=== PATIENT | female | born 1995 | race Caucasian/White ===

== ENCOUNTER 2019-11-14 01:18 | Inpatient (IN) | payer BC ==
[~2019-11-14 01:18] MED LIST: Bupivacaine 0.25% 10 ML SDV ONE; Phenylephrine 1% 10 MG/ML SDV ONE; ePHEDrine/Normal Saline 25 MG/5 ML Syringe ONE
[2019-11-14] MEDS ORDERED: Sodium Chloride 0.9% 10 ML Syringe FLUSH PRN (02:10)
[2019-11-14] MEDS ORDERED: Nalbuphine 10 MG/ML Syringe IVPUSH PRN (02:10)
[2019-11-14] MEDS ORDERED: Oxytocin/Lactated Ringers 10 UNIT/1,000 ML BAG IV SCH ×2 (02:15→05:15)
[2019-11-14] MEDS: Lactated Ringers 1,000 ML IV SCH ×3 (02:45→04:25)
[2019-11-14] MEDS ORDERED: diphenhydrAMINE 50 MG/ML SDV IVPUSH PRN (03:23)
[2019-11-14] MEDS ORDERED: ePHEDrine 50 MG/ML SDV IVPUSH PRN (03:23)
[2019-11-14] MEDS ORDERED: fentaNYL 100 MCG/2 ML SDV EPIDUR PRN (03:23)
[2019-11-14] MEDS ORDERED: fentaNYL/Bupivacaine/NS 2 MCG-0.125% 250 ML EPIDUR PRN (03:23)
--- NOTE | 2019-11-14 03:57 | PCM.LDHP ---
L&D History of Present Illness - General Date of Service: 11/14/19 Admit Problem/Dx: Patient Status Order with Admit Dx/Problem 11/14/19 02:10 Patient Status [ADT] Routine Admission Diagnosis/Problem Admission Diagnosis/Problem 11/14/19 03:47 Lavonne is a 24-year-old 1 para 0 white female admitted with spontaneous rupture membranes with resultant clear amniotic fluid, active labor and advanced cervical dilation of 5 cm at 39-0/7 weeks gestational age.. Her FELIX is 11/21/2019 as determined by LMP and supported by at least 3 ultrasounds. Source of Information: Patient History Limitations: Reports: No Limitations - History of Present Illness Introduction:: Lavonne is a 24-year-old 1 para 0 white female admitted with spontaneous rupture membranes with resultant clear amniotic fluid, active labor and advanced cervical dilation of 5 cm at 39-0/7 weeks gestational age.. Her FELIX is 11/21/2019 as determined by LMP and supported by at least 3 ultrasounds. Reports good activity. heart tones are reassuring. Amniotic fluid is then confirmed to be clear. Patient is desiring epidural. [employer] History: Patient is 1 para 0. Certain last menstrual period started 02/14/2019. Menarche age 12. Cycles every 28 days. Patient using no control to time conception. She had ultrasounds done on 04/25/2019, 07/05/2019 and 10/19/2019 all consistent with her LMP dating. course was relatively unremarkable. She is a centering patient. Her group B strep screen is negative. She did have a cold sore during the course of her and took valacyclovir for this. She declined genetic testing during the . She plans to breast-feed. Patient is rubella nonimmune and rhythm MMR is recommended after delivery. Weight gain has been from 156 pounds up to 174.4 pounds. Fundal height growth has been appropriate. She received her flu immunization on 08/23/2019. On 11/20/2018 she received her T dap. She had her HPV triple vaccination with last dose April 05, 2007. Hepatitis B triple dosing with last dose on 1994. Meningococcal minimization 2 doses with last dose on 03/15/2012. laboratory testing shows blood to be A+ with negative MRI screening. First hemoglobin is 13.0 g/dL and platelets are 302,000. She is rubella nonimmune. RPR is nonreactive. Hepatitis B surface antigen and HIV assays were both negative. Chlamydia and gonorrhea assays both negative. Second trimester labs show a hemoglobin of 10.7 g/dL and platelets at 252,000. Her 1 hour GTT was normal at 112. Follow-up platelet count on 11/01/2019 was 217,000. Her hemoglobin was 12.9 g/dL. Patient had been started on ferrous sulfate 325 mg by mouth daily. Her group B strep screen was negative. Allergies: None Medications: 1. Valacyclovir HCl 1 g orally take 2 tabs at onset and 2 tabs in 12 hours. Patient uses for cold sore and 1. 2. vitamins daily 3. Ferrous sulfate 325 mg by mouth daily. Past medical history: Unremarkable Past surgical history: 1. Tonsillectomy 2. [place] tooth extraction. Family history: Mother is alive and well. Father has hypertension and is on medications. Maternal grandmother is alive and well as is the maternal grandfather. Patient has 4 siblings that are all alive and well. Paternal grandmother with hypertension on medications. Paternal grandfather history of strokes, diabetes and cancer type of which is unknown. Review of systems: In general patient has no complaints other than leakage of amniotic fluid and contractions. Baby has been active.. Skin: Negative Lungs: No infectious symptoms or shortness of breath Cardiovascular: No chest pain or exercise intolerance Breasts: Changes associated with including increased size and tenderness.. GI: Negative : Body habitus changes associated with Musculoskeletal: Negative Neurological: Negative In general the patient is well-developed, well-nourished, pleasant female of stated age in no acute distress. On last evaluation in clinic blood pressures 119/68. Weight was 174.4 pounds. heart rate was 145. Pregravid weight was 156 pounds. It is 5 feet 4 inches and pregravid BMI was 26.8. Skin is warm dry without lesions. HEENT, neck and back within normal limits. Lungs are clear with good breath sounds in all lung bowman. Cardiovascular exam shows regular and rhythm without murmurs. Breast exam deferred having been done at first visit and normal and is not repeated at this time. Abdomen is gravid with last fundal height on 11/07/2019 clinic at 37.5 inches. Baby in vertex presentation. Genital per digital exam done by nursing staff initially shows cervix to be 5 cm , 80% effaced, +1 station, anterior, very soft, cephalic presentation and with positive clear amniotic fluid. Extremities and neurological exam are grossly within normal limits. - Related Data Allergies/Adverse Reactions: Allergies Allergy/AdvReac Type Severity Reaction Status Date / Time No Known Allergies Allergy Verified 11/14/19 02:37 H&P Review of Systems - Review of Systems: Review Of Systems: See Below L&D Exam - Exam Exam: See Below - Vital Signs Weight: 69.853 kg - Patient Data Lab Results Last 24 hrs: Laboratory Results - last 24 hr 11/14/19 Range/Units 02:27 WBC 15.78 H (3.98-10.04) K/mm3 RBC 4.10 (3.98-5.22) M/mm3 Hgb 12.6 (11.2-15.7) gm/dl Hct 36.4 (34.1-44.9) % MCV 88.8 (79.4-94.8) fl MCH 30.7 (25.6-32.2) pg MCHC 34.6 (32.2-35.5) g/dl RDW Std Deviation 40.0 (36.4-46.3) fL Plt Count 294 D (182-369) K/mm3 MPV 9.9 (9.4-12.3) fl Neut % (Auto) 74.2 H (34.0-71.1) % Lymph % (Auto) 18.6 L (19.3-51.7) % Nicholas % (Auto) 6.3 (4.7-12.5) % Eos % (Auto) 0.2 L (0.7-5.8) Baso % (Auto) 0.1 (0.1-1.2) % Neut # (Auto) 11.71 H (1.56-6.13) K/mm3 Lymph # (Auto) 2.93 (1.18-3.74) K/mm3 Nicholas # (Auto) 1.00 H (0.24-0.36) K/mm3 Eos # (Auto) 0.03 L (0.04-0.36) K/mm3 Baso # (Auto) 0.02 (0.01-0.08) K/mm3 Result Diagrams: 11/14/19 02:27 Problem List Initiated/Reviewed/Updated: Yes Orders Last 24hrs: Active Orders 24 hr Category Date Time Status Patient Status [ADT] Routine ADT 11/14/19 02:10 Active Activity as Tolerated [RC] PFP Care 11/14/19 02:10 Active Communication Order [RC] ASDIRECTED Care 11/14/19 02:10 Active Communication Order [RC] ASDIRECTED Care 11/14/19 03:23 Active Cooling Warming Measures [RC] ASDIRECTED Care 11/14/19 03:23 Active Heart Tones [RC] ASDIRECTED Care 11/14/19 02:14 Active Non Stress Test [RC] PER UNIT ROUTINE Care 11/14/19 02:10 Active Notify Provider [RC] ASDIRECTED Care 11/14/19 03:23 Active Notify Provider [RC] PFP Care 11/14/19 02:10 Active Notify Provider [RC] PRN Care 11/14/19 02:10 Active Oxygen Therapy [RC] ASDIRECTED Care 11/14/19 03:23 Active Peripheral IV Care [RC] . DIRECTED Care 11/14/19 02:14 Active Pulse Oximetry [RC] ASDIRECTED Care 11/14/19 03:23 Active Vital Signs [RC] PER UNIT ROUTINE Care 11/14/19 02:10 Active Vital Signs [RC] Q1H Care 11/14/19 03:23 Active Regular Diet [DIET] Diet 11/14/19 Breakfast Active RAPID PLASMA REAGIN,RPR [CHEM] Routine Lab 11/14/19 02:27 Received Bupivicaine/fentaNYL/NS [fentaNYL/Bupivacaine/NS 2 MCG- Med 11/14/19 03:23 Active 0.125% 250 ML] 0 ml EPIDUR CONTINUOUS PRN Lactated Ringers [Ringers, Lactated] 1,000 ml Med 11/14/19 02:15 Active IV ASDIRECTED Nalbuphine [Nubain] Med 11/14/19 02:10 Active 10 mg IVPUSH Q2H PRN Oxytocin/Lactated Ringers [Pitocin in LR 10 Units/1,000 Med 11/14/19 02:15 Active ML] 10 unit in 1,000 ml IV CONTINUOUS Sodium Chloride 0.9% [Saline Flush] Med 11/14/19 02:10 Active 10 ml FLUSH ASDIRECTED PRN diphenhydrAMINE [Benadryl] Med 11/14/19 03:23 Active 25 mg IVPUSH Q6H PRN ePHEDrine [ePHEDrine sulfate] Med 11/14/19 03:23 Active 5 mg IVPUSH ASDIRECTED PRN fentaNYL [Sublimaze] Med 11/14/19 03:23 Active 100 mcg EPIDUR Q3H PRN Electronic Heart Tones Ext w TOCO [WOMSER] Oth 11/14/19 02:10 Ordered Routine Electronic Heart Tones Internal [WOMSER] Per Unit Oth 11/14/19 02:10 Ordered Routine Peripheral IV Insertion Adult [OM.PC] Routine Oth 11/14/19 02:10 Ordered Resuscitation Status Routine Resus Stat 11/14/19 02:10 Ordered Medication Orders Diphenhydramine HCl (Benadryl) 25 mg IVPUSH Q6H PRN PRN Reason: Itching Ephedrine Sulfate (Ephedrine Sulfate) 5 mg IVPUSH ASDIRECTED PRN PRN Reason: HYPOTENTSION Fentanyl (Sublimaze) 100 mcg EPIDUR Q3H PRN PRN Reason: Pain Fentanyl/Bupivacaine HCl (Fentanyl/Bupivacaine/Ns 2 Mcg-0.125% 250 Ml) 0 ml EPIDUR CONTINUOUS PRN PRN Reason: Pain Lactated Ringer's (Ringers, Lactated) 1,000 mls @ 100 mls/hr IV ASDIRECTED MILANA Oxytocin/Lactated Ringer's (Pitocin In Lr 10 Units/1,000 Ml) 10 unit in 1,000 mls @ 500 mls/hr IV CONTINUOUS MILANA Nalbuphine HCl (Nubain) 10 mg IVPUSH Q2H PRN PRN Reason: Pain Sodium Chloride (Saline Flush) 10 ml FLUSH ASDIRECTED PRN PRN Reason: Keep Vein Open Assessment/Plan Comment:: 1. 39-0/7 week intrauterine , active labor, spontaneous rupture membranes with advanced cervical dilation to 5 cm upon admission 2. Group B strep screen is negative. 3. Rubella titer is nonimmuneMMR recommended after delivery and prior to discharge from hospital. 4. Patient desiring epidural in labor and delivery 5. Patient is up-to-date regarding her flu immunization, T dap 6. Patient plans to breast-feed 7. Patient has a history of cold sore 1 during pregnancytreated with valacyclovir. No sinus symptoms of herpes at this time. Plan: 1. Anticipate normal spontaneous vaginal delivery 2. Epidural when necessary for pain control in labor 3. MMR prior to discharge from the hospital 4. Routine labor care 5. CBC and RPR upon admission 6. Support breast-feeding decision/activity
--- NOTE | 2019-11-14 04:05 | PCM.PREANE ---
Preanesthetic Assessment - Procedure Proposed Procedure: Epidural - Anesthesia/Transfusion/Family Hx Anesthesia History: No Prior Anesthesia Family History of Anesthesia Reaction: No Transfusion History: No Prior Transfusion(s) - Review of Systems General: Fatigue Pulmonary: No Symptoms Cardiovascular: No Symptoms Gastrointestinal: Abdominal Pain (labor) Neurological: No Symptoms Other: Reports: None - Physical Assessment Height: 1.63 m Weight: 69.853 kg ASA Class: 2 Mental Status: Alert & Oriented x3 Airway Class: Mallampati = 1 Dentition: Reports: Normal Dentition Thyro-Mental Finger Breadths: 3 Mouth Opening Finger Breadths: 3 ROM/Head Extension: Full Lungs: Clear to Auscultation, Normal Respiratory Effort Cardiovascular: Regular Rate, Regular Rhythm - Lab Values: Laboratory Last Values WBC 15.78 K/mm3 (3.98-10.04) H 11/14/19 02:27 RBC 4.10 M/mm3 (3.98-5.22) 11/14/19 02:27 Hgb 12.6 gm/dl (11.2-15.7) 11/14/19 02:27 Hct 36.4 % (34.1-44.9) 11/14/19 02:27 MCV 88.8 fl (79.4-94.8) 11/14/19 02:27 MCH 30.7 pg (25.6-32.2) 11/14/19 02:27 MCHC 34.6 g/dl (32.2-35.5) 11/14/19 02:27 RDW Std Deviation 40.0 fL (36.4-46.3) 11/14/19 02:27 Plt Count 294 K/mm3 (182-369) D 11/14/19 02:27 MPV 9.9 fl (9.4-12.3) 11/14/19 02:27 Neut % (Auto) 74.2 % (34.0-71.1) H 11/14/19 02:27 Lymph % (Auto) 18.6 % (19.3-51.7) L 11/14/19 02:27 Dawes % (Auto) 6.3 % (4.7-12.5) 11/14/19 02:27 Eos % (Auto) 0.2 (0.7-5.8) L 11/14/19 02:27 Baso % (Auto) 0.1 % (0.1-1.2) 11/14/19 02:27 Neut # (Auto) 11.71 K/mm3 (1.56-6.13) H 11/14/19 02:27 Lymph # (Auto) 2.93 K/mm3 (1.18-3.74) 11/14/19 02:27 Dawes # (Auto) 1.00 K/mm3 (0.24-0.36) H 11/14/19 02:27 Eos # (Auto) 0.03 K/mm3 (0.04-0.36) L 11/14/19 02:27 Baso # (Auto) 0.02 K/mm3 (0.01-0.08) 11/14/19 02:27 - Allergies Allergies/Adverse Reactions: Allergies Allergy/AdvReac Type Severity Reaction Status Date / Time No Known Allergies Allergy Verified 11/14/19 02:37 - Anesthesia Plan Pre-Op Medication Ordered: None - Acknowledgements Anesthesia Type Planned: Epidural Pt an Appropriate Candidate for the Planned Anesthesia: Yes Alternatives and Risks of Anesthesia Discussed w Pt/Guardian: Yes Pt/Guardian Understands and Agrees with Anesthesia Plan: Yes PreAnesthesia Questionnaire Gastrointestinal History: Reports: GERD - CURRENT (IN HOUSE) MEDS Current Meds: Current Medications Diphenhydramine HCl (Benadryl) 25 mg IVPUSH Q6H PRN PRN Reason: Itching Ephedrine Sulfate (Ephedrine Sulfate) 5 mg IVPUSH ASDIRECTED PRN PRN Reason: HYPOTENTSION Fentanyl (Sublimaze) 100 mcg EPIDUR Q3H PRN PRN Reason: Pain Fentanyl/Bupivacaine HCl (Fentanyl/Bupivacaine/Ns 2 Mcg-0.125% 250 Ml) 0 ml EPIDUR CONTINUOUS PRN PRN Reason: Pain Lactated Ringer's (Ringers, Lactated) 1,000 mls @ 100 mls/hr IV ASDIRECTED MILANA Oxytocin/Lactated Ringer's (Pitocin In Lr 10 Units/1,000 Ml) 10 unit in 1,000 mls @ 500 mls/hr IV CONTINUOUS MILANA Nalbuphine HCl (Nubain) 10 mg IVPUSH Q2H PRN PRN Reason: Pain Sodium Chloride (Saline Flush) 10 ml FLUSH ASDIRECTED PRN PRN Reason: Keep Vein Open
--- NOTE | 2019-11-14 07:30 | PCM.SN ---
- Free Text/Narrative Note: Delivery note: Lavonne is a 24-year-old 1 para 0 white female admitted on a.m. of 2018 with spontaneous rupture membranes with resultant clear amniotic fluid, active labor and advanced cervical dilation of 5 cm at 39-0/7 weeks gestational age.. Her FELIX is 11/21/2019 as determined by LMP and supported by at least 3 ultrasounds. She rapidly went on to complete cervical dilation.Lavonne had an epidural placed for labor and analgesia. This worked very well for her. She rapidly went on to complete cervical dilation at 0639 hrs. on 11/14/2019. She delivered a viable, small, female with Apgars of 9 and 9, a length of 20.5 inches and a weight of 3270 g (7 lbs. 3 oz.). She delivered in an occiput anterior position. She had a small, superficial vaginal laceration which was repaired with a short running suture of 3-0 Monocryl. After delivery IV Pitocin was increased to 500 mL an hour to facilitate increase in uterine tone and decreased likelihood of bleeding. The baby was placed on mom's abdomen and her nose and mouth were bulb suctioned. The umbilical cord was allowed to pulsate for approximately 2 minutes and then was clamped 2 and cut by the baby's father. The umbilical cord had 3 vessels. Cord blood was obtained. The placenta delivered in a Haddad presentation, appeared to have a marginal insertion of the umbilical cord, appeared intact and complete and was discarded per patient desire. Estimated blood loss was 100 mL. Patient plans to breast-feed. Condition: Good.
[2019-11-14] MEDS ORDERED: Witch Hazel Medicated Pads 40/Jar TOP PRN (08:28)
[2019-11-14] MEDS ORDERED: Acetaminophen 325 MG Tab PO PRN (08:28)
[2019-11-14] MEDS ORDERED: Ibuprofen 600 MG Tab PO PRN (08:28)
[2019-11-14] MEDS ORDERED: Docusate Sodium 100 MG Cap PO PRN (08:28)
[2019-11-14] MEDS ORDERED: Benzocaine/Menthol 20%-0.5% Spray 56 GM Canister TOP PRN (08:28)
--- NOTE | 2019-11-14 14:52 | PCM48HPAN ---
Post Anesthesia Note - EVALUATION WITHIN 48HRS OF ANESTHETIC Vital Signs in Normal Range: Yes Patient Participated in Evaluation: Yes Respiratory Function Stable: Yes Airway Patent: Yes Cardiovascular Function Stable: Yes Hydration Status Stable: Yes Pain Control Satisfactory: Yes Nausea and Vomiting Control Satisfactory: Yes Mental Status Recovered: Yes Vital Signs: Last Vital Signs Temp 36.6 C 11/14/19 08:45 Pulse 104 H 11/14/19 08:45 Resp 14 11/14/19 08:45 BP 118/68 11/14/19 08:45 Pulse Ox 100 11/14/19 08:45
[2019-11-14] MEDS: Prenatal Multivitamin with Calcium/Folic Acid/Iron Tab PO SCH (18:12)
[2019-11-14] MEDS ORDERED: Measles, Mumps & Rubella Vaccine 0.5 ML SDV SUBCUT ONE (19:20)
[2019-11-15] MEDS: Prenatal Multivitamin with Calcium/Folic Acid/Iron Tab PO SCH (10:48)
--- NOTE | 2019-11-15 13:31 | PCM.SN ---
- Free Text/Narrative Note: note: Patient is doing well in the period. Minimal lochia, voiding well, ambulated without problems. Nursing without concerns. Patient is afebrile, vital signs are stable Abdomen is flat, soft, uterus is below the umbilicus and is firm and nontender. Legs are nontender. Assessment: recovery going well. Plan: Routine care. Patient be discharged home within the next 24- 48 hours.
--- NOTE | 2019-11-15 16:46 | PCM.DCSUM1 ---
Discharge Summary - Hospital Course Free Text/Narrative:: Lavonne is a 24-year-old 1 para 0 white female admitted on a.m. of 2018 with spontaneous rupture membranes with resultant clear amniotic fluid, active labor and advanced cervical dilation of 5 cm at 39-0/7 weeks gestational age.. Her FELIX is 11/21/2019 as determined by LMP and supported by at least 3 ultrasounds. She rapidly went on to complete cervical dilation.Lavonne had an epidural placed for labor and analgesia. This worked very well for her. She rapidly went on to complete cervical dilation at 0639 hrs. on 11/14/2019. She delivered a viable, small, female infant with Apgars of 9 and 9, a length of 20.5 inches and a weight of 3270 g (7 lbs. 3 oz.). She delivered in an occiput anterior position. She had a small, superficial vaginal laceration which was repaired with a short running suture of 3-0 Monocryl. After delivery IV Pitocin was increased to 500 mL an hour to facilitate increase in uterine tone and decreased likelihood of bleeding. The baby was placed on mom's abdomen and her nose and mouth were bulb suctioned. The umbilical cord was allowed to pulsate for approximately 2 minutes and then was clamped 2 and cut by the baby's father. The umbilical cord had 3 vessels. Cord blood was obtained. The placenta delivered in a Haddad presentation, appeared to have a marginal insertion of the umbilical cord, appeared intact and complete and was discarded per patient desire. Estimated blood loss was 100 mL. Patient plans to breast-feed. patient is done well. She is voiding well, has minimal lochia and is ambulating well. She desires discharge home. Condition: Good. Diagnosis: Stroke: No - Discharge Data Discharge Date: 11/15/19 Discharge Disposition: Home, Self-Care 01 Condition: Good - Referral to Home Health Primary Care Physician: Eulogio Henry MD - Patient Instructions Diet: Regular Diet as Tolerated (Nursing diet with increase calories and calcium is recommended) Activity: As Tolerated (No intercourse or tampons until bleeding resolves) Driving: May Drive Today Showering/Bathing: May Shower (May take a bath) Notify Provider of: Fever, Increased Pain, Swelling and Redness, Nausea and/or Vomiting - Discharge Plan Home Medications: Home Meds Mv-Mn/Iron/FA/Herbal/Digestive [ One Tablet] 1 tab PO DAILY 11/14/19 [ History] Acetaminophen [Tylenol] 650 mg PO Q4H PRN tablet 11/15/19 [Rx] Ibuprofen [Motrin] 600 mg PO Q4H PRN tablet 11/15/19 [Rx] Referrals: Eulogio Henry MD [Primary Care Provider] - (Return to [facility] weeks.) - Discharge Summary/Plan Comment DC Time >30 min.: No Discharge Summary/Plan Comment: Discharge instructions: 1. Discharge home 2. Diet, activity and follow-up discussed with patient. Recommend nursing diet with increased calories and calcium. 3. Precautions given concern increased pain, bleeding, temperature, signs/ symptoms of DVT/PE. 4. Medications per home medication was printed, discussed with and given to the patient. 5. Return to clinic-Dr. Henry[facility] in 2 weeks. Diagnosis: Term -delivered Condition: Good - Patient Data Vitals - Most Recent: Last Vital Signs Temp 36.7 C 11/15/19 15:20 Pulse 101 H 11/15/19 15:20 Resp 16 11/15/19 08:58 BP 122/70 11/15/19 15:20 Pulse Ox 100 11/15/19 15:20 Weight - Most Recent: 69.853 kg I&O - Last 24 hours: Intake & Output 11/15/19 11/15/19 11/15/19 06:59 14:59 22:59 Intake Total 120 240 Balance 120 240 Lab Results - Last 24 hrs: Laboratory Results - last 24 hr 11/14/19 Range/Units 02:27 RPR Non-reactive (NONREACTIVE) Med Orders - Current: Current Medications Acetaminophen (Tylenol) 650 mg PO Q4H PRN PRN Reason: mild pain or fever Benzocaine/Menthol (Dermoplast Pain Relief [place]) 0 gm TOP ASDIRECTED PRN PRN Reason: Perineal Comfort Measure Last Admin: 11/14/19 17:48 Dose: 1 spray Docusate Sodium (Colace) 100 mg PO BID PRN PRN Reason: Constipation Ibuprofen (Motrin) 600 mg PO Q4H PRN PRN Reason: Mild pain or fever Last Admin: 11/14/19 17:47 Dose: 600 mg Prenat Multivit/Mcdowell/Iron/Folic Ac ( Plus Iron) 1 each PO DAILY MILANA Last Admin: 11/15/19 10:48 Dose: Not Given Tommy Armando (Tucks) 1 pad TOP ASDIRECTED PRN PRN Reason: Pain Last Admin: 11/14/19 17:48 Dose: 1 applic Discontinued Medications Bupivacaine HCl (Sensorcaine-Mpf 0.25%) 10 ml .ROUTE .STK-MED ONE Stop: 11/14/19 00:01 Diphenhydramine HCl (Benadryl) 25 mg IVPUSH Q6H PRN PRN Reason: Itching Ephedrine Sulfate (Ephedrine Sulfate) 5 mg IVPUSH ASDIRECTED PRN PRN Reason: HYPOTENTSION Ephedrine Sulfate (Ephedrine In Ns) 25 mg .ROUTE .STK-MED ONE Stop: 11/14/19 00:01 Fentanyl (Sublimaze) 100 mcg EPIDUR Q3H PRN PRN Reason: Pain Last Admin: 11/14/19 04:15 Dose: 100 mcg Fentanyl/Bupivacaine HCl (Fentanyl/Bupivacaine/Ns 2 Mcg-0.125% 250 Ml) 0 ml EPIDUR CONTINUOUS PRN PRN Reason: Pain Last Admin: 11/14/19 04:14 Dose: 250 ml Lactated Ringer's (Ringers, Lactated) 1,000 mls @ 100 mls/hr IV ASDIRECTED MILANA Last Admin: 11/14/19 04:25 Dose: 999 mls/hr Oxytocin/Lactated Ringer's (Pitocin In Lr 10 Units/1,000 Ml) 10 unit in 1,000 mls @ 500 mls/hr IV CONTINUOUS MILANA Oxytocin/Lactated Ringer's (Pitocin In Lr 10 Units/1,000 Ml) 10 unit in 1,000 mls @ 12 mls/hr IV TITRATE MILANA; Protocol Last Titration: 11/14/19 06:40 Dose: 500 mls/hr Measles/Mumps/Rubella Vaccine Live (M-M-R Ii Vaccine) 0.5 ml SUBCUT .ONCE ONE Stop: 11/14/19 19:21 Last Admin: 11/15/19 11:27 Dose: 0.5 ml Nalbuphine HCl (Nubain) 10 mg IVPUSH Q2H PRN PRN Reason: Pain Phenylephrine HCl (Leonard-Synephrine) 10 mg .ROUTE .STK-MED ONE Stop: 11/14/19 00:01 Sodium Chloride (Saline Flush) 10 ml FLUSH ASDIRECTED PRN PRN Reason: Keep Vein Open
== END 2019-11-15 19:13 | disposition home or self-care (01) | DRG 560 ==
LOC: JD.OBCHECK 01:18 → JD.OB 01:25 → JD.OBCHECK 05:30 → JD.OB 05:33 → OBSVTOIN 06:39 → JD.OB 06:40
PROVIDERS: ADMIT Obstetrics & Gynecology; ATTEND Obstetrics & Gynecology
PROC: 10E0XZZ Delivery of Products of Conception, External Approach (ICD-10-PCS; principal; 2019-11-14)
PROC: 0HQ9XZZ Repair Perineum Skin, External Approach (ICD-10-PCS; 2019-11-14)
PROC: 3E0R3BZ Introduction of Anesthetic Agent into Spinal Canal, Percutaneous Approach (ICD-10-PCS; 2019-11-14)
DX: O70.0 First degree perineal laceration during delivery (principal); Z3A.39 39 weeks gestation of pregnancy; Z37.0 Single live birth
CPT/HCPCS: 36415; 59025; 59409; 85025; 86592; 90471; 90707; A9270-GY; G0010; J2370; J2590; J3010; J3490; J7050; J7120

== ENCOUNTER 2021-05-12 18:06 | Inpatient (IN) | payer BC ==
[~2021-05-12 18:06] MED LIST changes: -Phenylephrine 1% 10 MG/ML SDV ONE; -ePHEDrine/Normal Saline 25 MG/5 ML Syringe ONE
[2021-05-12] MEDS ORDERED: Ondansetron 4 MG/2 ML SDV IVPUSH PRN (18:36)
[2021-05-12] MEDS ORDERED: Lidocaine 1% 50 ML MDV INJECT ONE (18:36)
[2021-05-12] MEDS ORDERED: Sodium Chloride 0.9% 10 ML Syringe FLUSH PRN (18:36)
[2021-05-12] MEDS ORDERED: Nalbuphine 10 MG/1 ML Vial IVPUSH PRN (18:36)
[2021-05-12] MEDS ORDERED: Oxytocin/Lactated Ringers 10 UNIT/1,000 ML BAG IV SCH ×2 (18:45→21:59)
[2021-05-12] MEDS: Lactated Ringers 1,000 ML IV SCH ×3 (18:53→19:53)
[2021-05-12] MEDS ORDERED: Bupivacaine/fentaNYL/NS 100 ML Bag EPIDUR SCH (19:15)
[2021-05-12] MEDS ORDERED: fentaNYL 100 MCG/2 ML SDV EPIDUR PRN (19:15)
[2021-05-12] MEDS ORDERED: ePHEDrine 50 MG/ML SDV IVPUSH PRN (19:15)
--- NOTE | 2021-05-12 19:19 | PCM.PREANE ---
Preanesthetic Assessment - Procedure Proposed Procedure: Epidural - Anesthesia/Transfusion/Family Hx Anesthesia History: Prior Anesthesia Without Reaction Family History of Anesthesia Reaction: No Transfusion History: No Prior Transfusion(s) Intubation History: Unknown - Review of Systems General: No Symptoms Pulmonary: No Symptoms Cardiovascular: No Symptoms Gastrointestinal: No Symptoms (GERD) Neurological: No Symptoms Other: Reports: None - Physical Assessment NPO Status Date: 05/12/21 NPO Status Time: 12:00 Vital Signs: Last Vital Signs Temp 37.7 C 05/12/21 18:21 Pulse 106 H 05/12/21 18:21 Resp 16 05/12/21 18:21 BP 133/72 05/12/21 18:21 Pulse Ox 100 05/12/21 18:21 Height: 1.63 m Weight: 81.76 kg ASA Class: 2 Mental Status: Alert & Oriented x3 Airway Class: Mallampati = 2 Dentition: Reports: Normal Dentition, Caries Thyro-Mental Finger Breadths: 3 Mouth Opening Finger Breadths: 3 ROM/Head Extension: Full Lungs: Clear to Auscultation, Normal Respiratory Effort Cardiovascular: Regular Rate, Regular Rhythm, No Murmurs - Lab Values: Laboratory Last Values WBC 10.82 K/mm3 (3.98-10.04) H 05/12/21 18:55 RBC 3.81 M/mm3 (3.98-5.22) L 05/12/21 18:55 Hgb 11.9 gm/dl (11.2-15.7) 05/12/21 18:55 Hct 34.3 % (34.1-44.9) 05/12/21 18:55 MCV 90.0 fl (79.4-94.8) 05/12/21 18:55 MCH 31.2 pg (25.6-32.2) 05/12/21 18:55 MCHC 34.7 g/dl (32.2-35.5) 05/12/21 18:55 RDW Std Deviation 41.9 fL (36.4-46.3) 05/12/21 18:55 Plt Count 195 K/mm3 (182-369) 05/12/21 18:55 MPV 9.9 fl (9.4-12.3) 05/12/21 18:55 Above labs reviewed and noted and within acceptable ranges to proceed with epidural/spinal if desired. - Allergies Allergies/Adverse Reactions: Allergies Allergy/AdvReac Type Severity Reaction Status Date / Time No Known Allergies Allergy Verified 11/14/19 02:37 - Anesthesia Plan Pre-Op Medication Ordered: None - Acknowledgements Anesthesia Type Planned: Spinal, Epidural Pt an Appropriate Candidate for the Planned Anesthesia: Yes Alternatives and Risks of Anesthesia Discussed w Pt/Guardian: Yes Pt/Guardian Understands and Agrees with Anesthesia Plan: Yes PreAnesthesia Questionnaire Gastrointestinal History: Reports: G[employer]D [employer]CH[employer]ICIAN History: Reports: - Past Surgical History HEENT Surgical History: Reports: Tonsillectomy - HOME MEDS Home Medications: Home Meds Mv-Mn/Iron/FA/Herbal/Digestive [ One Tablet] 1 tab PO DAILY 11/14/19 [History] Acetaminophen [Tylenol] 650 mg PO Q4H PRN tablet 11/15/19 [Rx] Ibuprofen [Motrin] 600 mg PO Q4H PRN tablet 11/15/19 [Rx] - CURRENT (IN HOUSE) MEDS Current Meds: Current Medications Ephedrine Sulfate (Ephedrine 50 Mg/Ml Sdv) 5 mg IVPUSH ASDIRECTED PRN PRN Reason: Hypotension Fentanyl (Fentanyl 100 Mcg/2 Ml Sdv) 100 mcg EPIDUR Q3H PRN PRN Reason: Pain Fentanyl/Bupivacaine HCl (Bupivacaine/Fentanyl/Ns 100 Ml Bag) 100 ml EPIDUR ASDIRECTED [facility] Oxytocin/Lactated Ringer's (Pitocin In Lr 10 Units/1,000 Ml) 10 unit in 1,000 mls @ 500 mls/hr IV .CONTINUOUS [facility] Lactated Ringer's (Ringers, Lactated) 1,000 mls @ 100 mls/hr IV ASDIRECTED [facility] Last Admin: 05/12/21 19:03 Dose: 100 mls/hr Documented by: Miscellaneous Medication (Phenylephrine Hcl In 0.9% Nacl 1 Mg/10 Ml Syringe) 0.1 mg IVPUSH Q10M PRN PRN Reason: Hypotension Nalbuphine HCl (Nalbuphine 10 Mg/1 Ml Vial) 10 mg IVPUSH Q2H PRN PRN Reason: Pain Ondansetron HCl (Ondansetron 4 Mg/2 Ml Sdv) 4 mg IVPUSH Q4H PRN PRN Reason: Nausea/Vomiting Sodium Chloride (Sodium Chloride 0.9% 10 Ml Syringe) 10 ml FLUSH ASDIRECTED PRN PRN Reason: Keep Vein Open Discontinued Medications Lidocaine HCl (Lidocaine 1% 50 Ml Mdv) 50 ml INJECT ONETIME ONE Stop: 05/12/21 18:37
--- NOTE | 2021-05-12 19:35 | PCM.LDHP ---
L&D History of Present Illness - General Date of Service: 05/12/21 Admit Problem/Dx: Patient Status Order with Admit Dx/Problem 05/12/21 19:25 Admission Status [Patient Status] [ADT] Routine Admission Diagnosis/Problem Admission Diagnosis/Problem Labor established Source of Information: Patient History Limitations: Reports: No Limitations - History of Present Illness Introduction:: Lavonne Yarbrough is a 26-year-old -0-0-1 female at 39 weeks 5 days (FELIX 05/14/2021) by LMP consistent with a 10-week ultrasound who presents in active labor. She reports that she has been having cramping off and on throughout the day today but really started having contractions at around 4 PM. Her contractions at that time were about 6 minutes apart and then became closer and closer together. By the time that she arrived to labor and delivery for evaluation her contractions were about 2 to 3 minutes apart and were lasting for around 45 seconds to a minute at a time. She reports that they were getting much stronger as well. She denies any leaking of fluid but did have some scant bleeding with mucus discharge with the contractions. She reports good movement. Timing/Duration: Reports: constant/continuous (Every 2 to 6 minutes starting at around 4 PM and getting closer and closer together) Location, : Reports: Lower back, Pelvic Quality: Reports: Pressure, Throbbing Severity: Severe Pain Score: 8 Improves with: Reports: None Worsens with: Reports: None Associated Symptoms: Reports: vaginal bleeding (Small amount with mucus discharge). Denies: vaginal discharge, vaginal fluid Present Illness Comments:: Lavonne Yarbrough is a 26-year-old -0-0-1 female at 39 weeks 5 days (FELIX 021) by LMP consistent with a 10-week ultrasound who presents with spontaneous labor. She has had routine care with Dr. Henry starting at 10 weeks gestational age. She has had an uncomplicated . She received Tdap on 03/04/2021. She received the flu shot on 08/13/2020. She had a normal anatomy ultrasound done at 20 weeks gestational age. Her care has been with Dr. Eulogio Henry and has been uncomplicated [employer] history -0-0-1 G1: 11/14/2019, 39 weeks, , female infant, 7 pounds 3 ounces, epidural for anesthesia, no complications G2: Current labs Blood type: A+ Antibody screen: Negative First trimester hematocrit/hemoglobin: 37.1%/12.9 on 10/17/2020 Platelets: 337 on 10/17/2020 Urine culture: Mixed zneon suggestive of contamination Rubella status: Immune Hepatitis B surface antigen: Negative RPR: Negative Hepatitis C: Negative HIV: Negative Gonorrhea: Negative Chlamydia: Negative Anatomy ultrasound: Normal anatomy, no abnormalities, no placenta previa, 68th percentile on 12/25/2020 One hour glucose tolerance test: 60 Second trimester hematocrit/hemoglobin: 33.2%/11.1 on 02/04/2021 Platelets: 239 on 02/04/2021 GBS status: Negative on 04/11/2021 - Related Data Allergies/Adverse Reactions: Allergies Allergy/AdvReac Type Severity Reaction Status Date / Time No Known Allergies Allergy Verified 11/14/19 02:37 Home Medications: Home Meds Mv-Mn/Iron/FA/Herbal/Digestive [ One Tablet] 1 tab PO DAILY 11/14/19 [History] Acetaminophen [Tylenol] 650 mg PO Q4H PRN tablet 11/15/19 [Rx] Ibuprofen [Motrin] 600 mg PO Q4H PRN tablet 11/15/19 [Rx] Past Medical History Gastrointestinal History: Reports: GERD [employer] History: Reports: : 2 Para: 1 - Past Surgical History HEENT Surgical History: Reports: Tonsillectomy GI Surgical History: Reports: None Female Surgical History: Reports: None Social & Family History - Family History Family Medical History: No Pertinent Family History - Tobacco Use Tobacco Use Status *Q: Never Tobacco User Tobacco Use Within Last Twelve Months: No - Tobacco Core Measures Tobacco Use/Smoking Within Last 30 Days: No Smokeless Tobacco Use in Last 30 Days: No - Caffeine Use Caffeine Use: Reports: None - Alcohol Use Alcohol Use History: No - Recreational Drug Use Recreational Drug Use: No Drug Use in Last 12 Months: No - Living Situation & Occupation Living situation: Reports: , with Spouse, with Family H&P Review of Systems - Review of Systems: Review Of Systems: See Below General: Denies: Fever, Chills, Malaise, Weakness, Fatigue HEENT: Denies: Headaches, Rhinitis, Post Nasal Drip, Sinus Congestion, Sore Throat, Visual Changes Pulmonary: Denies: Shortness of Breath, Wheezing, Pleuritic Chest Pain, Cough Cardiovascular: Denies: Chest Pain, Palpitations, Dyspnea on Exertion, Orthopnea Gastrointestinal: Denies: Abdominal Pain, Constipation, Diarrhea, Nausea, Vomiting Genitourinary: Denies: Dysuria, Frequency, Burning, Pain, Urgency Musculoskeletal: Reports: Back Pain (and hip pain of ) Skin: Denies: Rash, Lesions Psychiatric: Denies: Depression, Anxiety L&D Exam - Exam Exam: See Below - Vital Signs Vital Signs: Last Vital Signs Temp 37.7 C 05/12/21 18:21 Pulse 106 H 05/12/21 18:21 Resp 16 05/12/21 18:21 BP 133/72 05/12/21 18:21 Pulse Ox 100 05/12/21 18:21 Weight: 81.76 kg - OB Specific Contraction Duration (sec): 60-75 Contraction Frequency (min): 2-4 Contraction Intensity: Strong Movement: Active Heart Tones: Present Heart Tones per Min: 135 (+15 x 15 accelerations, no decelerations) Heart Rate (FHR) Variability: Moderate (6-25 bmp) Presentation: Vertex Estimated Weight: 7.5-8 pounds by Jose Miguel - Stahl Score Stahl Score Cervix Position: Anterior Stahl Score Consistency: Soft Stahl Score Effacement: >80% (90%) Stahl Score Dilation: > 5 cm (8 cm) Stahl Score Infant's Station: -2 Stahl Score Total: 11 - Exam General: Alert, Oriented HEENT: Conjunctiva Clear, EOMI Neck: Supple, Trachea Midline Lungs: Clear to Auscultation, Normal Respiratory Effort Cardiovascular: Regular Rate, Regular Rhythm GI/Abdominal Exam: Soft, Non-Tender, No Distention, Other (Gravid). No: Guarding, Rigid, Rebound Genitourinary: Normal external exam Extremities: Normal Inspection, Pedal Edema (Trace edema in bilateral lower extremities to mid shins) Skin: Warm, Dry, Intact Psychiatric: Alert, Normal Affect, Normal Mood - Patient Data Lab Results Last 24 hrs: Laboratory Results - last 24 hr 05/12/21 Range/Units 18:55 WBC 10.82 H (3.98-10.04) K/mm3 RBC 3.81 L (3.98-5.22) M/mm3 Hgb 11.9 (11.2-15.7) gm/dl Hct 34.3 (34.1-44.9) % MCV 90.0 (79.4-94.8) fl MCH 31.2 (25.6-32.2) pg MCHC 34.7 (32.2-35.5) g/dl RDW Std Deviation 41.9 (36.4-46.3) fL Plt Count 195 (182-369) K/mm3 MPV 9.9 (9.4-12.3) fl Result Diagrams: 05/12/21 18:55 - Problem List (1) 39 weeks gestation of SNOMED Code(s): 34657080 ICD Code: Z3A.39 - 39 WEEKS GESTATION OF Status: Acute Current Visit: Yes Problem List Initiated/Reviewed/Updated: Yes Orders Last 24hrs: Active Orders 24 hr Category Date Time Status Admission Status [Patient Status] [ADT] Routine ADT 05/12/21 19:25 Active Activity as Tolerated [RC] PFP Care 05/12/21 18:36 Active Communication Order [RC] ASDIRECTED Care 05/12/21 18:36 Active Heart Tones [RC] ASDIRECTED Care 05/12/21 18:37 Active Non Stress Test [RC] PER UNIT ROUTINE Care 05/12/21 18:36 Active Notify Provider [RC] ASDIRECTED Care 05/12/21 19:15 Active Notify Provider [RC] PFP Care 05/12/21 18:36 Active Notify Provider [RC] PRN Care 05/12/21 18:36 Active Oxygen Therapy [RC] ASDIRECTED Care 05/12/21 19:15 Active Peripheral IV Care [RC] . DIRECTED Care 05/12/21 18:37 Active Pulse Oximetry [RC] ASDIRECTED Care 05/12/21 19:15 Active Vital Signs [RC] PER UNIT ROUTINE Care 05/12/21 18:36 Active Regular Diet [DIET] Diet 05/12/21 Dinner Active CORONAVIRUS COVID-19 JOSIAH [MOLEC] Stat Lab 05/12/21 18:32 Received RAPID PLASMA REAGIN,RPR [CHEM] Routine Lab 05/12/21 18:55 Received Bupivacaine/fentaNYL/NS [fentaNYL/Bupivacaine/NS 2 MCG- Med 05/12/21 19:15 Active 0.125% 100 ML] 100 ml EPIDUR ASDIRECTED Lactated Ringers [Ringers, Lactated] 1,000 ml Med 05/12/21 18:45 Active IV ASDIRECTED Nalbuphine [Nubain] Med 05/12/21 18:36 Active 10 mg IVPUSH Q2H PRN Ondansetron [Zofran] Med 05/12/21 18:36 Active 4 mg IVPUSH Q4H PRN Oxytocin/Lactated Ringers [Pitocin in LR 10 Units/1,000 Med 05/12/21 18:45 Active ML] 10 unit in 1,000 ml IV .CONTINUOUS Phenylephrine HCl In 0.9% NaCl [Phenylephrine 1 MG/10 Med 05/12/21 19:15 Active ML-NS] 0.1 mg IVPUSH Q10M PRN Sodium Chloride 0.9% [Saline Flush] Med 05/12/21 18:36 Active 10 ml FLUSH ASDIRECTED PRN ePHEDrine [ePHEDrine sulfate] Med 05/12/21 19:15 Active 5 mg IVPUSH ASDIRECTED PRN fentaNYL [Sublimaze] Med 05/12/21 19:15 Active 100 mcg EPIDUR Q3H PRN Electronic Heart Tones Ext w TOCO [WOMSER] Oth 05/12/21 18:36 Ordered Routine Electronic Heart Tones Internal [WOMSER] Per Unit Ot 05/12/21 18:36 Ordered Routine Peripheral IV Insertion Adult [OM.PC] Routine Oth 05/12/21 18:36 Ordered Resuscitation Status Routine Resus Stat 05/12/21 18:36 Ordered Medication Orders Ephedrine Sulfate (Ephedrine 50 Mg/Ml Sdv) 5 mg IVPUSH ASDIRECTED PRN PRN Reason: Hypotension Fentanyl (Fentanyl 100 Mcg/2 Ml Sdv) 100 mcg EPIDUR Q3H PRN PRN Reason: Pain Last Admin: 05/12/21 19:27 Dose: 100 mcg Documented by: LORYMVIR Fentanyl/Bupivacaine HCl (Bupivacaine/Fentanyl/Ns 100 Ml Bag) 100 ml EPIDUR ASDIRECTED [facility] Last Admin: 05/12/21 19:27 Dose: 100 ml Documented by: RUMMVIR Oxytocin/Lactated Ringer's (Pitocin In Lr 10 Units/1,000 Ml) 10 unit in 1,000 mls @ 500 mls/hr IV .CONTINUOUS [facility] Lactated Ringer's (Ringers, Lactated) 1,000 mls @ 100 mls/hr IV ASDIRECTED [facility] Last Admin: 05/12/21 19:03 Dose: 100 mls/hr Documented by: Infusion: 05/12/21 19:03 Dose: 100 mls/hr Documented by: Admin: 05/12/21 18:53 Dose: 100 mls/hr Documented by: LUZ Miscellaneous Medication (Phenylephrine Hcl In 0.9% Nacl 1 Mg/10 Ml Syringe) 0.1 mg IVPUSH Q10M PRN PRN Reason: Hypotension Nalbuphine HCl (Nalbuphine 10 Mg/1 Ml Vial) 10 mg IVPUSH Q2H PRN PRN Reason: Pain Ondansetron HCl (Ondansetron 4 Mg/2 Ml Sdv) 4 mg IVPUSH Q4H PRN PRN Reason: Nausea/Vomiting Sodium Chloride (Sodium Chloride 0.9% 10 Ml Syringe) 10 ml FLUSH ASDIRECTED PRN PRN Reason: Keep Vein Open Assessment/Plan Comment:: Lavonne Yarbrough is a 26-year-old -0-0-1 female at 39 weeks 5 days with spontaneous labor Refer to observation for spontaneous labor with cervical change Plan for artificial rupture of membranes after placement of epidural Continuous monitoring Place IV and have Lactated Ringer's at 125 ml/hr May have small amounts of regular diet Activity as tolerated May have epidural as desired Plans to breast-feed after delivery Anticipate vaginal delivery unless otherwise indicated Andrea Hackett MD 7:39 PM 05/12/2021
--- NOTE | 2021-05-12 20:18 | PCM.PNLD ---
Labor Progress Note - VS & Meds Vital Signs: Last Vital Signs Temp 37.7 C 05/12/21 18:21 Pulse 106 H 05/12/21 18:21 Resp 16 05/12/21 18:21 BP 133/72 05/12/21 18:21 Pulse Ox 100 05/12/21 18:21 Active Medications: Current Medications Ephedrine Sulfate (Ephedrine 50 Mg/Ml Sdv) 5 mg IVPUSH ASDIRECTED PRN PRN Reason: Hypotension Fentanyl (Fentanyl 100 Mcg/2 Ml Sdv) 100 mcg EPIDUR Q3H PRN PRN Reason: Pain Last Admin: 05/12/21 19:27 Dose: 100 mcg Documented by: Fentanyl/Bupivacaine HCl (Bupivacaine/Fentanyl/Ns 100 Ml Bag) 100 ml EPIDUR ASDIRECTED [facility] Last Admin: 05/12/21 19:27 Dose: 100 ml Documented by: Oxytocin/Lactated Ringer's (Pitocin In Lr 10 Units/1,000 Ml) 10 unit in 1,000 mls @ 500 mls/hr IV .CONTINUOUS [facility] Lactated Ringer's (Ringers, Lactated) 1,000 mls @ 100 mls/hr IV ASDIRECTED [facility] Last Admin: 05/12/21 19:53 Dose: 100 mls/hr Documented by: Miscellaneous Medication (Phenylephrine Hcl In 0.9% Nacl 1 Mg/10 Ml Syringe) 0.1 mg IVPUSH Q10M PRN PRN Reason: Hypotension Nalbuphine HCl (Nalbuphine 10 Mg/1 Ml Vial) 10 mg IVPUSH Q2H PRN PRN Reason: Pain Ondansetron HCl (Ondansetron 4 Mg/2 Ml Sdv) 4 mg IVPUSH Q4H PRN PRN Reason: Nausea/Vomiting Sodium Chloride (Sodium Chloride 0.9% 10 Ml Syringe) 10 ml FLUSH ASDIRECTED PRN PRN Reason: Keep Vein Open Discontinued Medications Lidocaine HCl (Lidocaine 1% 50 Ml Mdv) 50 ml INJECT ONETIME ONE Stop: 05/12/21 18:37 - Uterine Contractions Contraction Frequency (min): 2-4 Contraction Duration (sec): 60-75 Contraction Intensity: Strong Uterine Resting Tone: Soft - Monitoring Heart Rate (FHR) Baseline: 130 Heart Rate (FHR) Per Doppler: 130 Heart Rate (FHR) Variability: Moderate (6-25 bmp) Accelerations: Present, 15x15 Decelerations: None Strip Review: Category I - Vaginal Exam Dilation (cm): 9 Effacement (Percent): 100 Station: -1 Cervical Position: Anterior Sterile Vaginal Exam Performed By: Andrea Hackett Vaginal Exam Comment: Artificial rupture of membranes with return of small tommie unt of clear fluid. Mother and tolerated procedure without difficulty. - Labor Progress (Free Text) Labor Progress: Lavonne Yarbrough is a 26-year-old -0-0-1 female at 39 weeks 5 days with spontaneous labor Patient with artificial rupture of membranes with return of small amount of clear fluid. Mother and tolerated procedure without difficulty. Patient had epidural placed prior to artificial rupture of membranes. Patient making progress over the last hour with cervix currently at 9 cm Routine vitals Patient may have small amount of regular diet as tolerated Epidural working well for anesthesia Anticipate vaginal delivery unless otherwise indicated Andrea Hackett MD 8:17 PM 05/12/2021
--- NOTE | 2021-05-12 21:32 | PCM.DEL ---
L & D Note - General Info Date of Service: 05/12/21 Mother's Due Date: 05/14/21 - Delivery Note Labor: Spontaneous Delivery Outcome: Livebirth Infant Delivery Method: Spontaneous Vaginal Delivery-Single Presentation: Left Occiput Anterior (ANNABELLE) Nuchal Cord: None Anesthesia Type: Epidural Amniotic Fluid Description: Clear Episiotomy Type: None Laceration: 2nd Degree (midline perineal, repaired with 3-0 Vicryl) Suture type: Vicryl Suture size: 3-0 Placenta: Intact, Spontaneous Cord: 3 Vessels Estimated Blood Loss: 300 Resuscitation Needed: No : Bulb Syringe, Stimulated, Warmed, [place] Used Provider: Caleb Beth Score 1 min: 9 Score 5 min: 9 Second Stage Interventions: Reports: Pushing Effectively, Pushing, Stirrups/Leg Supports Delivery Comments (Free Text/Narrative):: Stage I: Lavonne Yarbrough was admitted for spontaneous labor. On admission her cervix was dilated to 7 to 8 cm. She was GBS negative. She was given an epidural for anesthesia. She had artificial rupture membranes with return of clear fluid. She progressed to complete and pushing. Stage II: On 05/12/2021 she had a normal vaginal delivery of a live male at 21:01. Apgars of 9 & 9. Weight of 3490 g (7 lbs 11.1 oz). Length of 20.0 inches. There was no nuchal cord. Infant was delivered in ANNABELLE position. The cord was doubly clamped and cut by father the . was placed on mother's abdomen. Stage III: She had a spontaneous delivery of an intact placenta in Kae presentation. Three vessel cord. She was given pitocin and fundal massage. She had second-degree midline perineal laceration that was repaired with 3-0 Vicryl. Mom and baby were stable to recovery. EBL of 300 mL. Andrea Hackett MD 9:31 PM 05/12/2021 - General Info Date of Service: 05/12/21 - Patient Data Vitals - Most Recent: Last Vital Signs Temp 37.7 C 05/12/21 18:21 Pulse 106 H 05/12/21 18:21 Resp 16 05/12/21 18:21 BP 133/72 05/12/21 18:21 Pulse Ox 100 05/12/21 18:21 Weight - Most Recent: 81.76 kg I&O - Last 24 Hours: Intake & Output 05/12/21 05/12/21 05/12/21 06:59 14:59 22:59 Intake Total 1000 Balance 1000 Lab Results Last 24 Hours: Laboratory Results - last 24 hr 05/12/21 05/12/21 Range/Units 18:32 18:55 WBC 10.82 H (3.98-10.04) K/mm3 RBC 3.81 L (3.98-5.22) M/mm3 Hgb 11.9 (11.2-15.7) gm/dl Hct 34.3 (34.1-44.9) % MCV 90.0 (79.4-94.8) fl MCH 31.2 (25.6-32.2) pg MCHC 34.7 (32.2-35.5) g/dl RDW Std Deviation 41.9 (36.4-46.3) fL Plt Count 195 (182-369) K/mm3 MPV 9.9 (9.4-12.3) fl SARS-CoV-2 RNA (JOSIAH) Negative (NEGATIVE) Med Orders - Current: Current Medications Ephedrine Sulfate (Ephedrine 50 Mg/Ml Sdv) 5 mg IVPUSH ASDIRECTED PRN PRN Reason: Hypotension Fentanyl (Fentanyl 100 Mcg/2 Ml Sdv) 100 mcg EPIDUR Q3H PRN PRN Reason: Pain Last Admin: 05/12/21 19:27 Dose: 100 mcg Documented by: Fentanyl/Bupivacaine HCl (Bupivacaine/Fentanyl/Ns 100 Ml Bag) 100 ml EPIDUR ASDIRECTED [facility] Last Admin: 05/12/21 19:27 Dose: 100 ml Documented by: Oxytocin/Lactated Ringer's (Pitocin In Lr 10 Units/1,000 Ml) 10 unit in 1,000 mls @ 500 mls/hr IV .CONTINUOUS [facility] Lactated Ringer's (Ringers, Lactated) 1,000 mls @ 100 mls/hr IV ASDIRECTED [facility] Last Admin: 05/12/21 19:53 Dose: 100 mls/hr Documented by: Miscellaneous Medication (Phenylephrine Hcl In 0.9% Nacl 1 Mg/10 Ml Syringe) 0.1 mg IVPUSH Q10M PRN PRN Reason: Hypotension Nalbuphine HCl (Nalbuphine 10 Mg/1 Ml Vial) 10 mg IVPUSH Q2H PRN PRN Reason: Pain Ondansetron HCl (Ondansetron 4 Mg/2 Ml Sdv) 4 mg IVPUSH Q4H PRN PRN Reason: Nausea/Vomiting Sodium Chloride (Sodium Chloride 0.9% 10 Ml Syringe) 10 ml FLUSH ASDIRECTED PRN PRN Reason: Keep Vein Open Discontinued Medications Lidocaine HCl (Lidocaine 1% 50 Ml Mdv) 50 ml INJECT ONETIME ONE Stop: 05/12/21 18:37 - Problem List & Annotations (1) 39 weeks gestation of SNOMED Code(s): 90672574 Code(s): Z3A.39 - 39 WEEKS GESTATION OF Status: Acute Current Visit: Yes (2) Vaginal delivery SNOMED Code(s): 334257862 Code(s): O80 - ENCOUNTER FOR FULL-TERM UNCOMPLICATED DELIVERY Status: Acute Current Visit: Yes (3) Second degree perineal laceration during delivery SNOMED Code(s): 0489033 Code(s): O70.1 - SECOND DEGREE PERINEAL LACERATION DURING DELIVERY Status: Acute Current Visit: Yes - Problem List Review Problem List Initiated/Reviewed/Updated: Yes - My Orders Last 24 Hours: My Active Orders 05/12/21 Dinner Regular Diet [DIET] 05/12/21 18:36 Activity as Tolerated [RC] PFP Communication Order [RC] ASDIRECTED Non Stress Test [RC] PER UNIT ROUTINE Notify Provider [RC] PFP Notify Provider [RC] PRN Vital Signs [RC] PER UNIT ROUTINE Nalbuphine [Nubain] 10 mg IVPUSH Q2H PRN Ondansetron [Zofran] 4 mg IVPUSH Q4H PRN Sodium Chloride 0.9% [Saline Flush] 10 ml FLUSH ASDIRECTED PRN Electronic Heart Tones Ext w TOCO [WOMSER] Routine Electronic Heart Tones Internal [WOMSER] Per Unit Routine Peripheral IV Insertion Adult [OM.PC] Routine Resuscitation Status Routine 05/12/21 18:37 Heart Tones [RC] ASDIRECTED Peripheral IV Care [RC] . DIRECTED 05/12/21 18:45 Lactated Ringers [Ringers, Lactated] 1,000 ml IV ASDIRECTED Oxytocin/Lactated Ringers [Pitocin in LR 10 Units/1,000 ML] 10 unit in 1,000 ml IV .CONTINUOUS 05/12/21 18:55 RAPID PLASMA REAGIN,RPR [CHEM] Routine 05/12/21 19:25 Admission Status [Patient Status] [ADT] Routine 05/12/21 21:24 Patient Status Manage Transfer [TRANSFER] Routine - Plan Plan:: Lavonne Yarbrough is a 26-year-old G2 now P2-0-0-2 female status post , PPD #0 Admit to inpatient following normal spontaneous vaginal delivery Continue Pitocin per unit protocol following delivery of placenta and lactated Ringer's until tolerating regular diet Regular diet Vitals per unit routine Ibuprofen and Tylenol for pain control Assist with breast-feeding as needed Continue to monitor lochia Anticipate discharge home on day #1 or #2 depending on status due to late timing of delivery Andrea Hackett MD 9:31 PM 05/12/2021
[2021-05-12] MEDS ORDERED: Hydrocortisone Acetate 25 MG Supp RECTAL PRN (21:59)
[2021-05-12] MEDS ORDERED: Acetaminophen 325 MG Tab PO PRN (21:59)
[2021-05-12] MEDS ORDERED: Witch Hazel Medicated Pads 40/Jar TOP PRN (21:59)
[2021-05-12] MEDS ORDERED: Benzocaine/Menthol 20%-0.5% Spray 56 GM Canister TOP PRN (21:59)
[2021-05-12] MEDS ORDERED: Docusate Sodium 100 MG Cap PO PRN (21:59)
[2021-05-12] MEDS ORDERED: Magnesium Hydroxide 400 MG/5 ML Susp 30 ML Cup PO PRN (21:59)
[2021-05-13] MEDS: Ibuprofen 600 MG Tab PO PRN ×3 (00:03→12:32)
--- NOTE | 2021-05-13 08:58 | PCM48HPAN ---
Post Anesthesia Note - EVALUATION WITHIN 48HRS OF ANESTHETIC Vital Signs in Normal Range: Yes Patient Participated in Evaluation: Yes Respiratory Function Stable: Yes Airway Patent: Yes Cardiovascular Function Stable: Yes Hydration Status Stable: Yes Pain Control Satisfactory: Yes Nausea and Vomiting Control Satisfactory: Yes Mental Status Recovered: Yes Vital Signs: Last Vital Signs Temp 97.5 F 05/13/21 02:09 Pulse 72 05/13/21 02:09 Resp 16 05/13/21 02:09 BP 109/72 05/13/21 02:09 Pulse Ox 96 05/13/21 02:09
[2021-05-13] MEDS ORDERED: Prenatal Multivitamin with Calcium/Folic Acid/Iron Tab PO SCH (09:00)
--- NOTE | 2021-05-13 12:11 | PCM.DCSUM1 ---
Discharge Summary - Hospital Course Free Text/Narrative:: Stage I: Lavonne Yarbrough was admitted for spontaneous labor. On admission her cervix was dilated to 7 to 8 cm. She was GBS negative. She was given an epidural for anesthesia. She had artificial rupture membranes with return of clear fluid. She progressed to complete and pushing. Stage II: On 05/12/2021 she had a normal vaginal delivery of a live male at 21:01. Apgars of 9 & 9. Weight of 3490 g (7 lbs 11.1 oz). Length of 20.0 inches. There was no nuchal cord. was delivered in ANNABELLE position. The cord was doubly clamped and cut by father the infant. Infant was placed on mother's abdomen. Stage III: She had a spontaneous delivery of an intact placenta in Kae presentation. Three vessel cord. She was given pitocin and fundal massage. She had second-degree midline perineal laceration that was repaired with 3-0 Vicryl. Mom and baby were stable to recovery. EBL of 300 mL. patient has done well. She is nursing without problems, ambulating well. Has minimal lochia and is voiding without concerns. She is desiring discharge home. Condition: Good Diagnosis: Stroke: No - Discharge Data Discharge Date: 05/13/21 Discharge Disposition: Home, Self-Care 01 Condition: Good - Referral to Home Health Primary Care Physician: Andrea Hackett MD - Patient Instructions Diet: Usual Diet as Tolerated (Nursing diet with increased calories and calcium as recommended) Activity: As Tolerated (No intercourse or tampons until bleeding resolves) Driving: May Drive Today Showering/Bathing: May Shower (May take a bath) Notify Provider of: Fever, Increased Pain, Swelling and Redness, Drainage - Discharge Plan Home Medications: Home Meds Mv-Mn/Iron/FA/Herbal/Digestive [ One Tablet] 1 tab PO DAILY 11/14/19 [History] Acetaminophen [Tylenol] 650 mg PO Q6H PRN tablet 05/13/21 [Rx] Ibuprofen [Motrin] 600 mg PO Q6H PRN tablet 05/13/21 [Rx] Referrals: Eulogio Henry MD [Physician] - (Return to [facility] weeks.) - Discharge Summary/Plan Comment DC Time >30 min.: No Discharge Summary/Plan Comment: Discharge instructions: 1. Discharge home 2. Diet, activity and follow-up discussed with patient. Recommend nursing diet with increased calories and calcium. 3. Precautions given concern increased pain, bleeding, temperature, signs/symptoms of DVT/PE. 4. Medications per home medication was printed, discussed with and given to the patient. 5. Return to clinic-Dr. Henry-[facility] in 2 weeks. Diagnosis: Term -delivered Condition: Good - Patient Data Vitals - Most Recent: Last Vital Signs Temp 36.7 C 05/13/21 08:05 Pulse 91 05/13/21 08:05 Resp 14 05/13/21 08:05 BP 113/69 05/13/21 08:05 Pulse Ox 96 05/13/21 08:05 Weight - Most Recent: 81.647 kg I&O - Last 24 hours: Intake & Output 05/12/21 05/13/21 05/13/21 22:59 06:59 14:59 Intake Total 3600 Output Total 200 58 Balance 3400 -58 Lab Results - Last 24 hrs: Laboratory Results - last 24 hr 05/12/21 05/12/21 Range/Units 18:32 18:55 WBC 10.82 H (3.98-10.04) K/mm3 RBC 3.81 L (3.98-5.22) M/mm3 Hgb 11.9 (11.2-15.7) gm/dl Hct 34.3 (34.1-44.9) % MCV 90.0 (79.4-94.8) fl MCH 31.2 (25.6-32.2) pg MCHC 34.7 (32.2-35.5) g/dl RDW Std Deviation 41.9 (36.4-46.3) fL Plt Count 195 (182-369) K/mm3 MPV 9.9 (9.4-12.3) fl SARS-CoV-2 RNA (JOSIAH) Negative (NEGATIVE) Med Orders - Current: Current Medications Acetaminophen (Acetaminophen 325 Mg Tab) 650 mg PO Q6H PRN PRN Reason: mild pain or fever Benzocaine/Menthol (Benzocaine/Menthol 20%-0.5% [place] 56 Gm Canister) 0 gm TOP ASDIRECTED PRN PRN Reason: Perineal Comfort Measure Last Admin: 05/12/21 22:22 Dose: 1 can Documented by: Docusate Sodium (Docusate Sodium 100 Mg Cap) 100 mg PO BID PRN PRN Reason: Constipation Hydrocortisone Acetate (Hydrocortisone Acetate 25 Mg Supp) 25 mg RECTAL BID PRN PRN Reason: Hemorrhoid pain Oxytocin/Lactated Ringer's (Pitocin In Lr 10 Units/1,000 Ml) 10 unit in 1,000 mls @ 100 mls/hr IV TITRATE MILANA; Protocol Ibuprofen (Ibuprofen 600 Mg Tab) 600 mg PO Q6H PRN PRN Reason: Mild pain or fever Last Admin: 05/13/21 06:36 Dose: 600 mg Documented by: Magnesium Hydroxide (Magnesium Hydroxide 400 Mg/5 Ml Susp 30 Ml Cup) 30 ml PO BEDTIME PRN PRN Reason: Constipation Prenat Multivit/Spiral Winding Machine Helper/Iron/Folic Ac ( Multivitamin With Calcium/Folic Acid/Iron Tab) 1 each PO DAILY MILANA Last Admin: 05/13/21 11:25 Dose: Not Given Documented by: Tommy Armando (Tommy Armando Medicated Pads 40/Jar) 1 pad TOP ASDIRECTED PRN PRN Reason: Perineal Comfort Measure Last Admin: 05/12/21 22:22 Dose: 1 tub Documented by: Discontinued Medications Bupivacaine HCl (Bupivacaine 0.25% 10 Ml Sdv) 10 ml .ROUTE .[facility] Stop: 05/12/21 00:01 Ephedrine Sulfate (Ephedrine 50 Mg/Ml Sdv) 5 mg IVPUSH ASDIRECTED PRN PRN Reason: Hypotension Fentanyl (Fentanyl 100 Mcg/2 Ml Sdv) 100 mcg EPIDUR Q3H PRN PRN Reason: Pain Last Admin: 05/12/21 19:27 Dose: 100 mcg Documented by: Fentanyl/Bupivacaine HCl (Bupivacaine/Fentanyl/Ns 100 Ml Bag) 100 ml EPIDUR ASDIRECTED MILANA Last Admin: 05/12/21 19:27 Dose: 100 ml Documented by: Oxytocin/Lactated Ringer's (Pitocin In Lr 10 Units/1,000 Ml) 10 unit in 1,000 mls @ 500 mls/hr IV .CONTINUOUS MILANA Last Admin: 05/12/21 21:02 Dose: 500 mls/hr Documented by: Lactated Ringer's (Ringers, Lactated) 1,000 mls @ 100 mls/hr IV ASDIRECTED MILANA Last Admin: 05/12/21 19:53 Dose: 100 mls/hr Documented by: Lidocaine HCl (Lidocaine 1% 50 Ml Mdv) 50 ml INJECT ONETIME ONE Stop: 05/12/21 18:37 Last Admin: 05/13/21 02:28 Dose: Not Given Documented by: Miscellaneous Medication (Phenylephrine Hcl In 0.9% Nacl 1 Mg/10 Ml Syringe) 0.1 mg IVPUSH Q10M PRN PRN Reason: Hypotension Nalbuphine HCl (Nalbuphine 10 Mg/1 Ml Vial) 10 mg IVPUSH Q2H PRN PRN Reason: Pain Ondansetron HCl (Ondansetron 4 Mg/2 Ml Sdv) 4 mg IVPUSH Q4H PRN PRN Reason: Nausea/Vomiting Sodium Chloride (Sodium Chloride 0.9% 10 Ml Syringe) 10 ml FLUSH ASDIRECTED PRN PRN Reason: Keep Vein Open
== END 2021-05-13 21:50 | disposition home or self-care (01) | DRG 560 ==
LOC: JD.OBCHECK 18:06 → JD.OB 18:10 → JD.OBCHECK 19:25 → JD.OB 20:46 → OBSVTOIN 21:01 → JD.OB 21:02
PROVIDERS: ADMIT Obstetrics & Gynecology; ATTEND Obstetrics & Gynecology
PROC: 10E0XZZ Delivery of Products of Conception, External Approach (ICD-10-PCS; principal; 2021-05-12)
PROC: 10907ZC Drainage of Amniotic Fluid, Therapeutic from Products of Conception, Via Natural or Artificial Opening (ICD-10-PCS; 2021-05-12)
PROC: 0KQM0ZZ Repair Perineum Muscle, Open Approach (ICD-10-PCS; 2021-05-12)
PROC: 3E0R3BZ Introduction of Anesthetic Agent into Spinal Canal, Percutaneous Approach (ICD-10-PCS; 2021-05-12)
DX: O70.1 Second degree perineal laceration during delivery (principal); Z3A.39 39 weeks gestation of pregnancy; K21.9 Gastro-esophageal reflux disease without esophagitis; M41.9 Scoliosis, unspecified; Z20.822 Contact with and (suspected) exposure to COVID-19; Z37.0 Single live birth
CPT/HCPCS: 01967; 36415; 51701; 59025; 59409; 85027; 86592; A9270-GY; J2590; J3010; J3490; J7120; U0002

== ENCOUNTER 2024-06-14 00:23 | Inpatient (IN) | payer BC ==
[2024-06-14] MEDS ORDERED: Lidocaine 1% 50 ML MDV INJECT PRN (00:44)
[2024-06-14] MEDS ORDERED: Nalbuphine 10 MG/ML Syringe IVPUSH PRN (00:44)
[2024-06-14] MEDS ORDERED: Sodium Chloride 0.9% 10 ML Syringe FLUSH PRN (00:44)
[2024-06-14] MEDS ORDERED: Ondansetron 4 MG/2 ML SDV IVPUSH PRN (00:44)
[2024-06-14] MEDS: Lactated Ringers 1,000 ML IV SCH (00:58)
[2024-06-14 01:01] LABS: BASOPHILS PERCENT AUTO 0.2 % (0.0-1.0); EOSINOPHILS PERCENT AUTO 0.2 % (0.0-6.0); HEMATOCRIT 35.6 % (37.0-47.0); HEMOGLOBIN 12.4 gm/dl (12.0-16.0); IMMATURE GRAN ABSOLUTE AUTO 0.06 K/mm3 (0.00-0.05); IMMATURE GRAN PERCENT AUTO 0.5 % (0.0-0.4); LYMPHOCYTES ABSOLUTE AUTO 2.2 K/mm3 (1.0-4.8); MEAN CORPUSCULAR HEMOGLOBIN 30.3 pg (28.0-32.0); MEAN CORPUSCULAR HGB CONC 34.8 g/dl (32.0-36.0); MEAN PLATELET VOLUME 10.3 fl (9.4-12.3); MONOCYTES ABSOLUTE AUTO 0.8 K/mm3 (0.0-0.8); MONOCYTES PERCENT AUTO 5.8 % (0.0-8.0); NEUTROPHILS PERCENT AUTO 76.3 % (41.0-71.0); PLATELET COUNT,PLT 208 K/mm3 (150-400); RED BLOOD CELL COUNT 4.09 M/mm3 (4.10-5.30); WHITE BLOOD CELL COUNT,WBC 13.03 K/mm3 (3.9-11.3)
[2024-06-14] MEDS ORDERED: diphenhydrAMINE 50 MG/ML SDV IVPUSH PRN (01:28)
[2024-06-14] MEDS ORDERED: ePHEDrine 50 MG/ML SDV IVPUSH PRN (01:28)
[2024-06-14] MEDS ORDERED: Oxytocin/0.9 % Sodium Chloride 30 UNIT/500 ML BAG IV SCH (01:30)
[2024-06-14] MEDS: Bupivacaine/fentaNYL/NS 100 ML Bag EPIDUR PRN (01:36)
[2024-06-14] MEDS: Calcium Carbonate 500 MG Tab.Chew PO PRN (03:11)
[2024-06-14] MEDS ORDERED: Nalbuphine 10 MG/1 ML Vial IVPUSH PRN (07:03)
[2024-06-14] MEDS ORDERED: Sodium Chloride 0.9% 10 ML Syringe FLUSH SCH (09:00)
[2024-06-14] MEDS ORDERED: Oxytocin/Lactated Ringers 30 UNIT/500 ML BAG IV SCH (09:58)
[2024-06-14] MEDS ORDERED: Acetaminophen 325 MG Tab PO PRN (09:58)
[2024-06-14] MEDS: Benzocaine/Menthol 20%-0.5% Spray 78 GM Cannister TOP PRN (10:44)
[2024-06-14] MEDS: Witch Hazel Medicated Pads 40/Jar TOP PRN (10:44)
[2024-06-14] MEDS: Prenatal Multivitamin with Calcium/Folic Acid/Iron Tab PO SCH (11:40)
[2024-06-14] MEDS: Ibuprofen 600 MG Tab PO SCH (11:40)
[2024-06-14] MEDS ORDERED: Magnesium Hydroxide 400 MG/5 ML Susp 30 ML Cup PO PRN (21:00)
[2024-06-15] MEDS: Ibuprofen 600 MG Tab PO SCH (02:51)
[2024-06-15] MEDS: Hydrocortisone Acetate 25 MG Supp RECTAL PRN (03:56)
[2024-06-15] MEDS: Docusate Sodium 100 MG Cap PO PRN (06:28)
[2024-06-15] MEDS ORDERED: Measles, Mumps & Rubella Vaccine 0.5 ML SDV SUBCUT ONE (09:00)
[2024-06-15] MEDS: Measles, Mumps & Rubella Vaccine 0.5 ML SDV SUBCUT ONE (09:07)
== END 2024-06-15 09:45 | disposition home or self-care (01) | DRG 560 ==
LOC: JD.OBCHECK 00:23 → JD.OB 00:26 → JD.OBCHECK 00:43 → JD.OB 00:44 → OBSVTOIN 08:15 → JD.OB 08:16
PROVIDERS: ADMIT Obstetrics & Gynecology; ATTEND Obstetrics & Gynecology
PROC: 10E0XZZ Delivery of Products of Conception, External Approach (ICD-10-PCS; principal; 2024-06-14)
PROC: 0KQM0ZZ Repair Perineum Muscle, Open Approach (ICD-10-PCS; 2024-06-14)
PROC: 3E0R3BZ Introduction of Anesthetic Agent into Spinal Canal, Percutaneous Approach (ICD-10-PCS; 2024-06-14)
PROC: 00HU33Z Insertion of Infusion Device into Spinal Canal, Percutaneous Approach (ICD-10-PCS; 2024-06-14)
DX: O70.1 Second degree perineal laceration during delivery (principal); Z37.0 Single live birth
CPT/HCPCS: 36415; 51702; 59025; 59409; 85025; 86592; 86850; 86900; 86901; 90471; 90707; A9270-GY; J3490; J7120

== ENCOUNTER 2024-10-04 08:54 | Day surgery (SDC) | payer BC ==
[~2024-10-04 08:54] MED LIST changes: -Bupivacaine 0.25% 10 ML SDV ONE; +Lidocaine 1% 5 ML VIAL ONE; +Midazolam 1 MG/ML 2 ML SDV ONE; +Ondansetron 4 MG/2 ML SDV ONE; +Propofol 200 MG/20 ML SDV ONE; +Rocuronium 50 MG/5 ML Vial ONE; +Sodium Chloride 0.9% 10 ML Syringe FLUSH PRN; +Sodium Chloride 0.9% 10 ML Syringe FLUSH SCH; +ceFAZolin 2 GM Vial ONE; +fentaNYL 250 MCG/5 ML SDV ONE
[2024-10-04] MEDS ORDERED: Dexamethasone 4 MG/ML 5 ML MDV ONE (09:05)
[2024-10-04] MEDS ORDERED: HYDROmorphone 0.5 MG/0.5 ML Syringe ONE (09:05)
[2024-10-04 09:11] LABS: APPEARANCE,URINE SLT CLOUDY (Clear); BILIRUBIN,URINE NEGATIVE (Negative); COLOR,URINE LIGHT YELLOW (Yellow); GLUCOSE,URINE NEGATIVE (Negative); KETONES,URINE NEGATIVE (Negative); LEUKOCYTE ESTERASE,URINE 1+ (Negative); NITRITE,URINE NEGATIVE (Negative); OCCULT BLOOD,URINE NEGATIVE (Negative); PROTEIN,URINE NEGATIVE (Negative); UROBILINOGEN,URINE 0.2 (0.2-1.0)
[2024-10-04] MEDS: Lactated Ringers 1,000 ML IV SCH (09:15)
[2024-10-04 09:28] LABS: AMORPHOUS SEDIMENT,URINE FEW /hpf (NOT SEEN); BACTERIA,URINE MODERATE /hpf (FEW); MUCUS,URINE FEW /hpf (FEW); RBC,URINE 0-5 /hpf (0-5)
[2024-10-04] MEDS ORDERED: Ondansetron 4 MG/2 ML SDV IVPUSH PRN (10:14)
[2024-10-04] MEDS ORDERED: droPERidol 5 MG/2 ML SDV IVPUSH PRN (10:14)
[2024-10-04] MEDS: Bupivacaine 0.5% 30 ML SDV ONE (11:20)
[2024-10-04] MEDS: Bupivacaine 0.25% 10 ML SDV ONE (11:20)
[2024-10-04] MEDS: EPINEPHrine 1 MG/ML SDV ONE (11:20)
[2024-10-04] MEDS ORDERED: Sugammadex Sodium 200 MG/2 ML VIAL IV ONE (11:22)
[2024-10-04] MEDS ORDERED: Ketamine 200 MG/20 ML MDV ONE (11:23)
[2024-10-04] MEDS ORDERED: Lactated Ringers 1,000 ML ONE (11:35)
[2024-10-04] MEDS ORDERED: fentaNYL 100 MCG/2 ML SDV ONE (11:47)
[2024-10-04] MEDS ORDERED: Ketorolac 30 MG/ML SDV ONE (11:50)
[2024-10-04] MEDS: HYDROmorphone 0.5 MG/0.5 ML Syringe IVPUSH PRN (12:47)
[2024-10-04] MEDS: fentaNYL 100 MCG/2 ML SDV IVPUSH PRN (12:59)
[2024-10-04] MEDS: Acetaminophen/oxyCODONE 325-5 MG Tab PO PRN (13:35)
== END 2024-10-04 15:02 | disposition home or self-care (01) ==
LOC: JD.SDS 08:54
PROVIDERS: ATTEND Obstetrics & Gynecology
DX: D25.9 Leiomyoma of uterus, unspecified (principal); N93.9 Abnormal uterine and vaginal bleeding, unspecified
CPT/HCPCS: 36415; 58552; 81001; 81025; 86850; 86900; 86901; A9270; J0171; J0665; J0690; J1100; J1171; J1885; J2250; J2405; J2704; J3010; J3490; J7120; 00944